=== PATIENT | male | born 1985 | race Caucasian/White ===

== ENCOUNTER 2020-11-07 13:07 | Inpatient (IN) | payer BC, OTHER ==
[~2020-11-07] VITALS: Ht 180.3 cm; Wt 91.9 kg
[~2020-11-07 13:07] MED LIST: ENOX100S4 SQ; PARO20TA98 PO; WARF5TAB2 PO
[2020-11-07] MEDS ORDERED: ONDANSETRON 2MG/ML, 2ML ONE (14:14)
[2020-11-07 14:15] LABS: MEAN CORPUSCULAR HEMOGLOBIN 28.8 pg (27.5-34.5); MEAN PLATELET VOLUME 8.2 fL (7.4-10.4); RED BLOOD COUNT 6.05 x10^6/uL (4.38-5.82); RED CELL DISTRIBUTION WIDTH 16.4 % (9.4-14.8)
[2020-11-07] MEDS ORDERED: SODIUM CHLORIDE 0.9% 1,000ML IVBOLUS ONE (14:30)
[2020-11-07] MEDS ORDERED: ONDANSETRON 2MG/ML, 2ML IVPush ONE (14:30)
[2020-11-07] MEDS ORDERED: SODIUM CHLORIDE FLUSH 10ML SYR IVF ONE (14:30)
[2020-11-07 14:45] LABS: PLATELET COUNT 1088 x10^3/uL (130-400)
[2020-11-07 14:48] LABS: BAND#(MANUAL) 3.62 x10^3/uL; BANDS%(MANUAL) 10 % (0-7); LYMPH#(MANUAL) 3.26 x10^3/uL (1-3.4); LYMPHS% (MANUAL) 9 % (22-44); METAMYELOCYTES# (MANUAL) 0.36 x10^3/uL (0-0); METAMYELOCYTES% (MANUAL) 1 % (0-1); MONOS#(MANUAL) 2.17 x10^3/uL (0.3-2.7); MONOS% (MANUAL) 6 % (2-9); SEG#(MANUAL) 26.79 x10^3/uL (1.8-6.8); SEGS% (MANUAL) 74 % (42-75)
[2020-11-07 14:49] LABS: <PLATELET ESTIMATE> INCREASED; ALANINE AMINOTRANSFERASE 36 U/L (12-78); ALBUMIN 4.2 g/dL (3.4-5.0); ALKALINE PHOSPHATASE 112 U/L (45-117); ANION GAP 17 mmol/L (5-15); ANISOCYTOSIS 1+; BILIRUBIN,TOTAL 2.4 mg/dL (0.2-1.0); CHLORIDE 96 mmol/L (98-107); CREATININE 1.54 mg/dL (0.7-1.3); LARGE PLATELETS 1+; POLYCHROMASIA 1+; TOTAL PROTEIN 9.4 g/dL (6.4-8.2)
[2020-11-07 14:55] LABS: ACETONE, SERUM Moderate(40mg/dL) (Negative)
[2020-11-07] MEDS ORDERED: CEFTRIAXONE 1,000 MG in DEXTROSE 5% 50 ML IVPB ONE (15:30)
[2020-11-07 16:56] LABS: MICROSCOPIC INDICATED
[2020-11-07] MEDS ORDERED: ACETAMINOPHEN 325 MG TABLET PO PRN (17:30)
[2020-11-07] MEDS ORDERED: MELATONIN 5 MG TABLET PO PRN (17:30)
[2020-11-07] MEDS ORDERED: ONDANSETRON 2MG/ML, 2ML IVPush PRN (17:30)
[2020-11-07] MEDS ORDERED: VANCOMYCIN PER PHARMACY MC PRN (17:30)
[2020-11-07] MEDS: SODIUM CHLORIDE 0.9% 1,000 ML IV SCH (17:30)
[2020-11-07 17:34] LABS: MEAN CORPUSCULAR HEMOGLOBIN 28.4 pg (27.5-34.5); MEAN CORPUSCULAR HGB CONC 33.4 g/dL (33.2-36.2); MEAN PLATELET VOLUME 7.8 fL (7.4-10.4); PLATELET COUNT 826 x10^3/uL (130-400); RED BLOOD COUNT 5.65 x10^6/uL (4.38-5.82); RED CELL DISTRIBUTION WIDTH 16.4 % (9.4-14.8)
[2020-11-07] MEDS ORDERED: VANCOMYCIN 2,100 MG in SODIUM CHLORIDE 0.9% 500 ML IV ONE (18:00)
[2020-11-07 18:17] LABS: ANISOCYTOSIS 1+; BAND#(MANUAL) 2.31 x10^3/uL; BANDS%(MANUAL) 8 % (0-7); LYMPH#(MANUAL) 0.87 x10^3/uL (1-3.4); LYMPHS% (MANUAL) 3 % (22-44); MONOS% (MANUAL) 9 % (2-9); SEG#(MANUAL) 23.12 x10^3/uL (1.8-6.8); SEGS% (MANUAL) 80 % (42-75)
[2020-11-07 18:18] LABS: POLYCHROMASIA 1+
[2020-11-07 18:19] LABS: <PLATELET ESTIMATE> INCREASED; LARGE PLATELETS 1+
--- NOTE | 2020-11-07 18:28 | NUR ---
PT BACK FROM CT, AWAITING RESULTS.
[2020-11-07] MEDS ORDERED: PHARMACOKINETIC CONSULTATION MC ONE (20:30)
[2020-11-07] MEDS ORDERED: PHARMACOKINETIC MONITORING MC PRN (20:30)
--- NOTE | 2020-11-07 21:02 | NUR ---
REPORT TO SHELLY APONTE
--- NOTE | 2020-11-07 21:17 | NUR ---
PT STATES HE CAME TO ER BECAUSE ON SUNDAY PT HAD STOMACH AND BACK PAIN, PT STATES HE COULDNT URINATE AND COULD ONLY URINATE FOR A FEW SECONDS, PT STATES WHEN HE URINATED IT WOULD STING
[2020-11-07] MEDS ORDERED: HYDROcodone/APAP 5/325 TABLET ONE (21:25)
[2020-11-07] MEDS: HYDROcodone/APAP 5/325 TABLET PO PRN (21:28)
[2020-11-07] MEDS ORDERED: ENALAPRILAT 1.25 MG/ML, 1ML ONE (23:47)
[2020-11-07] MEDS: ENALAPRILAT 1.25 MG/ML, 2ML IVPush PRN (23:50)
--- NOTE | 2020-11-07 23:53 | NUR ---
PTS BLOOD PRESSURE ELEVATED AT 165/105, PT HAS PRN MEDICATION IN MAY, THIS RN ADMINISTERED VASOTEC VIA IV, WILL REASSESS TO SEE IF BLOOD PRESSURE COMES DOWN, PT NAD AT THIS TIME
--- NOTE | 2020-11-08 00:01 | NUR ---
Break RN assuming care at this time.
[2020-11-08] MEDS ORDERED: MORPHINE SULFATE 4 MG/ML, 1ML ONE (00:07)
[2020-11-08] MEDS ORDERED: ONDANSETRON 2MG/ML, 2ML ONE ×2 (00:07→15:16)
[2020-11-08] MEDS: morphine SULFATE 10 MG/ML, 1ML IVPush PRN ×4 (00:11→11:29)
--- NOTE | 2020-11-08 00:15 | NUR ---
Pt given pain medication and nausea medication. Provided with ice packs and extra blankets. Denies further needs. Call torres and personal items within reach.
--- NOTE | 2020-11-08 02:11 | NUR ---
PT ASLEEP IN BED, ALL NEEDS IN REACH, CALL LIGHT IN REACH, NAD AT THIS TIME, VSS
[2020-11-08] MEDS: SODIUM CHLORIDE 0.9% 1,000 ML IV SCH ×3 (02:19→18:10)
[2020-11-08] MEDS ORDERED: morphine SULFATE 10 MG/ML, 1ML ONE ×2 (04:57→07:50)
--- NOTE | 2020-11-08 05:16 | NUR ---
PT LAYING IN BED, PT A/OX3, PT MEDICATED FOR PAIN PER MAR, ALL NEEDS IN REACH, CALL LIGHT IN REACH, NAD AT THIS TIME, VSS
[2020-11-08] MEDS: VANCOMYCIN 1,700 MG in SODIUM CHLORIDE 0.9% 250 ML IV SCH ×2 (05:58→18:09)
[2020-11-08 06:19] LABS: CHLORIDE 99 mmol/L (98-107)
[2020-11-08 06:25] LABS: ALANINE AMINOTRANSFERASE 48 U/L (12-78); ALBUMIN 3.1 g/dL (3.4-5.0); ALKALINE PHOSPHATASE 106 U/L (45-117); ANION GAP 10 mmol/L (5-15); CALCIUM 8.2 mg/dL (8.5-10.1); CREATININE 0.92 mg/dL (0.7-1.3); TOTAL PROTEIN 7.7 g/dL (6.4-8.2)
--- NOTE | 2020-11-08 06:55 | NUR ---
REPORT FROM FADI BRAVO
[2020-11-08 07:40] LABS: MEAN CORPUSCULAR HEMOGLOBIN 28.2 pg (27.5-34.5); MEAN CORPUSCULAR HGB CONC 33.1 g/dL (33.2-36.2); MEAN PLATELET VOLUME 8.1 fL (7.4-10.4); PLATELET COUNT 826 x10^3/uL (130-400); RED BLOOD COUNT 5.27 x10^6/uL (4.38-5.82); RED CELL DISTRIBUTION WIDTH 16.2 % (9.4-14.8)
[2020-11-08 08:08] LABS: BAND#(MANUAL) 1.93 x10^3/uL; BANDS%(MANUAL) 10 % (0-7); LYMPH#(MANUAL) 1.16 x10^3/uL (1-3.4); LYMPHS% (MANUAL) 6 % (22-44); MONOS% (MANUAL) 15 % (2-9); SEG#(MANUAL) 13.32 x10^3/uL (1.8-6.8); SEGS% (MANUAL) 69 % (42-75)
[2020-11-08 08:12] LABS: <PLATELET ESTIMATE> INCREASED; PMNS WITH VACUOLES 1+; POLYCHROMASIA 1+
[2020-11-08 08:13] LABS: GIANT PLATELETS 1+; TOXIC GRAN 1+
--- NOTE | 2020-11-08 08:22 | NUR ---
PT TOLERATED NG INSERTION WELL. NADN/VSS
--- NOTE | 2020-11-08 09:19 | NUR ---
Patient is resting comfortably in bed. Bed in lowest, rails engaged, call light on lap. Vital Signs within normal limits. WCTM. Dad at bs.
--- NOTE | 2020-11-08 10:00 | NUR ---
PT SITTING ON GURNEY, FATHER AT BS. CALL LIGHT WITHIN REACH. BED IN LOWEST POSITION, BED RAILS UP X2. PT EDUCATED ON PAIN MED SCHEDULE.
[2020-11-08 10:04] LABS: ABSOLUTE RETICS # 0.071 x10^6/uL (0.5-1.5); RED BLOOD COUNT 5.36 x10^6/uL (4.38-5.82); RETICULOCYTE COUNT % 1.32 % (0.5-1.5)
[2020-11-08] MEDS ORDERED: HEPARIN 5,000 UNITS/ML, 1ML ONE (10:16)
[2020-11-08] MEDS ORDERED: HEPARIN 25,000 UNITS/250ML PMX 250 ML ONE (10:16)
[2020-11-08] MEDS ORDERED: HEPARIN 25,000 UNITS/250ML PMX 250 ML IV PRN (10:30)
[2020-11-08] MEDS ORDERED: HEPARIN 5,000 UNITS/ML, 1ML IV ONE (10:30)
[2020-11-08] MEDS ORDERED: HEPARIN 5,000 UNITS/ML, 1ML IV PRN (10:30)
--- NOTE | 2020-11-08 10:45 | NUR ---
PT STATED HIS NG TUBE "FELL OUT", NEW NG TUBE INSERTED. PT TOLERATED PROCEDURE WELL. PT EDUCATED ON THE IMPORTANCE OF KEEPING NG TUBE IN PLACE. NADN/VSS
--- NOTE | 2020-11-08 11:01 | NUR ---
Pt to be admitted to [facility], room 528. Report called to LYNNETTE.
[2020-11-08 11:33] VITALS: BP 147/94
[2020-11-08 12:10] LABS: INTERNATIONAL NORMALIZED RATIO 1.28 (0.93-1.1); PROTHROMBIN TIME 13.5 Seconds (9.6-11.5)
[2020-11-08] MEDS ORDERED: KETAMINE 10 MG/ML, 20ML ONE (13:15)
[2020-11-08] MEDS ORDERED: CEFOTETAN 2 GM ONE (13:15)
[2020-11-08] MEDS ORDERED: LORazepam 2 MG/ML, 1ML IVPush PRN (13:30)
[2020-11-08] MEDS ORDERED: LABETALOL 5MG/ML, 20ML IV PRN (13:30)
[2020-11-08] MEDS ORDERED: PROMETHAZINE 25 MG/ML, 1ML IVPush PRN (13:30)
[2020-11-08] MEDS ORDERED: HALOPERIDOL 5 MG/ML IV PRN (13:30)
[2020-11-08] MEDS ORDERED: ONDANSETRON 2MG/ML, 2ML IVPush PRN (13:30)
[2020-11-08] MEDS ORDERED: EPHEDRINE 50 MG/ML, 1ML IVPush PRN (13:30)
[2020-11-08] MEDS ORDERED: METHOCARBAMOL 1,000 MG in DEXTROSE 5% 100 ML IV PRN (13:30)
[2020-11-08] MEDS ORDERED: MEPERIDINE/PF 25MG/0.5ML IVPush PRN (13:30)
[2020-11-08] MEDS ORDERED: hydrALAzine 20 MG/ML, 1ML IV PRN (13:30)
[2020-11-08] MEDS ORDERED: OXYcodone 5 MG/5 ML ORAL.SOL UDC PO PRN (13:30)
[2020-11-08] MEDS ORDERED: ACETAMINOPHEN 325 MG TABLET PO PRN (13:30)
[2020-11-08] MEDS ORDERED: FENTANYL PF 250 MCG/5ML ONE (14:29)
[2020-11-08] MEDS ORDERED: SUGAMMADEX 200 MG/2 ML IVPush ONE (14:51)
[2020-11-08] MEDS: CEFTRIAXONE 2,000 MG in DEXTROSE 5% 50 ML IVPB SCH (15:00)
[2020-11-08] MEDS ORDERED: SUCCINYLCHOLINE 20 MG/ML, 10ML ONE (15:16)
[2020-11-08] MEDS ORDERED: GLYCOPYRROLATE 0.2MG/1ML, 5ML ONE (15:16)
[2020-11-08] MEDS ORDERED: NEOSTIGMINE 1 MG/ML, 10ML ONE (15:16)
[2020-11-08] MEDS ORDERED: ROCURONIUM 10MG/ML,5ML ONE (15:16)
[2020-11-08] MEDS ORDERED: PROPOFOL 10 MG/ML, 20ML ONE (15:16)
[2020-11-08] MEDS ORDERED: CEFAZOLIN 1,000 MG ONE (15:16)
[2020-11-08] MEDS ORDERED: DEXAMETHASONE 4 MG/ML, 1ML ONE (15:16)
[2020-11-08] MEDS ORDERED: FENTANYL PF 100 MCG/2ML ONE ×3 (15:17→16:05)
[2020-11-08] MEDS ORDERED: HYDROmorphone 2 MG/ML, 1ML ONE ×3 (15:39→21:29)
[2020-11-08] MEDS: FENTANYL PF 100 MCG/2ML IV PRN ×4 (15:40→16:20)
[2020-11-08] MEDS: HYDROmorphone 1 MG/ML, 1ML INJ IVPush PRN ×8 (15:45→16:40)
[2020-11-08] MEDS: METRONIDAZOLE PMX 500MG/100ML 100 ML IV SCH ×2 (18:09→23:18)
[2020-11-08] MEDS: GABAPENTIN 300 MG CAPSULE PO SCH ×2 (18:09→21:39)
[2020-11-08] MEDS: HEPARIN 5,000 UNITS/ML, 1ML IV PRN (18:25)
[2020-11-08] MEDS: HEPARIN 25,000 UNITS/250ML PMX 250 ML IV PRN (18:26)
[2020-11-08 18:33] VITALS: BP 138/93
[2020-11-08 19:03] VITALS: BP 133/88
[2020-11-08] MEDS: ACETAMINOPHEN 500 MG TABLET PO SCH (21:36)
[2020-11-08] MEDS: HYDROmorphone 1 MG/ML, 1ML INJ IV PRN (21:40)
[2020-11-08] MEDS: HYDROcodone/APAP 5/325 TABLET PO PRN (23:10)
[2020-11-09 00:38] VITALS: BP 139/95
[2020-11-09] MEDS ORDERED: HYDROmorphone 2 MG/ML, 1ML ONE ×4 (00:43→21:32)
[2020-11-09] MEDS: HYDROmorphone 1 MG/ML, 1ML INJ IV PRN ×4 (00:48→21:38)
[2020-11-09] MEDS: HEPARIN 5,000 UNITS/ML, 1ML IV PRN ×4 (01:09→19:46)
[2020-11-09] MEDS: ACETAMINOPHEN 500 MG TABLET PO SCH ×4 (03:04→21:37)
[2020-11-09] MEDS: HYDROcodone/APAP 5/325 TABLET PO PRN (03:14)
[2020-11-09] MEDS: METRONIDAZOLE PMX 500MG/100ML 100 ML IV SCH ×4 (06:01→22:52)
[2020-11-09] MEDS: VANCOMYCIN 1,700 MG in SODIUM CHLORIDE 0.9% 250 ML IV SCH ×2 (06:03→18:03)
[2020-11-09 06:39] VITALS: BP 148/98
[2020-11-09] MEDS: GABAPENTIN 300 MG CAPSULE PO SCH ×3 (08:11→21:37)
[2020-11-09 08:14] LABS: MEAN CORPUSCULAR HEMOGLOBIN 28.4 pg (27.5-34.5); MEAN CORPUSCULAR HGB CONC 33.2 g/dL (33.2-36.2); MEAN PLATELET VOLUME 7.8 fL (7.4-10.4); RED BLOOD COUNT 5.31 x10^6/uL (4.38-5.82); RED CELL DISTRIBUTION WIDTH 16.5 % (9.4-14.8)
[2020-11-09 08:22] LABS: PLATELET COUNT 1068 x10^3/uL (130-400)
[2020-11-09 08:27] LABS: ALANINE AMINOTRANSFERASE 39 U/L (12-78); ALBUMIN 2.7 g/dL (3.4-5.0); ANION GAP 10 mmol/L (5-15); CALCIUM 8.3 mg/dL (8.5-10.1); CHLORIDE 104 mmol/L (98-107); CREATININE 0.78 mg/dL (0.7-1.3)
[2020-11-09 08:29] LABS: ALKALINE PHOSPHATASE 96 U/L (45-117); BILIRUBIN,TOTAL 1.5 mg/dL (0.2-1.0); TOTAL PROTEIN 6.7 g/dL (6.4-8.2)
[2020-11-09 09:02] LABS: BAND#(MANUAL) 1.95 x10^3/uL; BANDS%(MANUAL) 9 % (0-7); LYMPH#(MANUAL) 2.17 x10^3/uL (1-3.4); LYMPHS% (MANUAL) 10 % (22-44); MONOS#(MANUAL) 1.95 x10^3/uL (0.3-2.7); MONOS% (MANUAL) 9 % (2-9); POLYCHROMASIA 1+; SEG#(MANUAL) 15.62 x10^3/uL (1.8-6.8); SEGS% (MANUAL) 72 % (42-75)
[2020-11-09 09:03] LABS: <PLATELET ESTIMATE> INCREASED; ANISOCYTOSIS 1+; LARGE PLATELETS 1+
[2020-11-09] MEDS: SODIUM CHLORIDE 0.9% 1,000 ML IV SCH (10:39)
[2020-11-09 14:20] VITALS: BP 162/104
[2020-11-09] MEDS: CEFTRIAXONE 2,000 MG in DEXTROSE 5% 50 ML IVPB SCH (15:08)
[2020-11-09] MEDS: HEPARIN 25,000 UNITS/250ML PMX 250 ML IV PRN (16:08)
[2020-11-09 18:50] VITALS: BP 164/104
[2020-11-10] MEDS ORDERED: HYDROmorphone 2 MG/ML, 1ML ONE ×5 (01:11→17:50)
[2020-11-10] MEDS: SODIUM CHLORIDE 0.9% 1,000 ML IV SCH ×2 (01:15→11:30)
[2020-11-10] MEDS: HYDROmorphone 1 MG/ML, 1ML INJ IV PRN ×6 (01:15→20:58)
[2020-11-10 02:01] VITALS: BP 153/106
[2020-11-10 02:25] LABS: MEAN CORPUSCULAR HEMOGLOBIN 28.7 pg (27.5-34.5); MEAN CORPUSCULAR HGB CONC 33.5 g/dL (33.2-36.2); MEAN PLATELET VOLUME 7.5 fL (7.4-10.4); PLATELET COUNT 727 x10^3/uL (130-400); RED BLOOD COUNT 4.69 x10^6/uL (4.38-5.82)
[2020-11-10 02:48] LABS: ANISOCYTOSIS 1+; BAND#(MANUAL) 1.13 x10^3/uL; BANDS%(MANUAL) 6 % (0-7); EOS#(MANUAL) 0.19 x10^3/uL (0.0-0.4); EOS% (MANUAL) 1 % (1-7); LYMPH#(MANUAL) 2.08 x10^3/uL (1-3.4); LYMPHS% (MANUAL) 11 % (22-44); MONOS#(MANUAL) 1.51 x10^3/uL (0.3-2.7); MONOS% (MANUAL) 8 % (2-9); POLYCHROMASIA 1+; SEG#(MANUAL) 13.99 x10^3/uL (1.8-6.8); SEGS% (MANUAL) 74 % (42-75)
[2020-11-10 02:49] LABS: <PLATELET ESTIMATE> INCREASED; LARGE PLATELETS 1+
[2020-11-10] MEDS ORDERED: ENALAPRILAT 1.25 MG/ML, 1ML ONE (02:49)
[2020-11-10] MEDS: ENALAPRILAT 1.25 MG/ML, 2ML IVPush PRN (02:54)
[2020-11-10] MEDS: HEPARIN 5,000 UNITS/ML, 1ML IV PRN ×3 (02:55→19:19)
[2020-11-10 05:00] VITALS: BP 152/94
[2020-11-10] MEDS: METRONIDAZOLE PMX 500MG/100ML 100 ML IV SCH ×4 (05:23→23:50)
[2020-11-10 06:22] LABS: ALANINE AMINOTRANSFERASE 32 U/L (12-78); ALBUMIN 2.6 g/dL (3.4-5.0); ALKALINE PHOSPHATASE 90 U/L (45-117); ANION GAP 9 mmol/L (5-15); BILIRUBIN,TOTAL 0.6 mg/dL (0.2-1.0); CALCIUM 7.9 mg/dL (8.5-10.1); CHLORIDE 100 mmol/L (98-107); CREATININE 0.69 mg/dL (0.7-1.3); VANCOMYCIN,TROUGH 14.8 mcg/mL (5.0-10.0)
[2020-11-10] MEDS: ACETAMINOPHEN 500 MG TABLET PO SCH ×3 (06:22→22:30)
[2020-11-10] MEDS: VANCOMYCIN 1,700 MG in SODIUM CHLORIDE 0.9% 250 ML IV SCH (06:22)
[2020-11-10] MEDS: HEPARIN 25,000 UNITS/250ML PMX 250 ML IV PRN ×2 (08:10→23:50)
[2020-11-10] MEDS: GABAPENTIN 300 MG CAPSULE PO SCH ×3 (08:13→20:58)
[2020-11-10 09:18] VITALS: BP 127/78
[2020-11-10] MEDS ORDERED: VANCOMYCIN 1,800 MG in SODIUM CHLORIDE 0.9% 250 ML IV ONE (12:00)
[2020-11-10 15:08] VITALS: BP 149/90
[2020-11-10] MEDS: CEFTRIAXONE 2,000 MG in DEXTROSE 5% 50 ML IVPB SCH (16:12)
[2020-11-10 20:31] VITALS: BP 153/89
[2020-11-10] MEDS: HYDROcodone/APAP 5/325 TABLET PO PRN (22:51)
[2020-11-11] MEDS: VANCOMYCIN 1,800 MG in SODIUM CHLORIDE 0.9% 250 ML IV SCH ×2 (01:22→13:52)
[2020-11-11 01:40] VITALS: BP 153/72
[2020-11-11 02:05] LABS: MEAN CORPUSCULAR HEMOGLOBIN 28.1 pg (27.5-34.5); MEAN CORPUSCULAR HGB CONC 33.1 g/dL (33.2-36.2); MEAN PLATELET VOLUME 7.3 fL (7.4-10.4); PLATELET COUNT 693 x10^3/uL (130-400); RED BLOOD COUNT 4.83 x10^6/uL (4.38-5.82); RED CELL DISTRIBUTION WIDTH 15.7 % (9.4-14.8)
[2020-11-11 02:13] LABS: ALANINE AMINOTRANSFERASE 28 U/L (12-78); ALBUMIN 2.6 g/dL (3.4-5.0); ANION GAP 10 mmol/L (5-15); CALCIUM 8.5 mg/dL (8.5-10.1); CHLORIDE 100 mmol/L (98-107); CREATININE 0.65 mg/dL (0.7-1.3)
[2020-11-11 02:15] LABS: ALKALINE PHOSPHATASE 86 U/L (45-117); BILIRUBIN,TOTAL 0.6 mg/dL (0.2-1.0); TOTAL PROTEIN 6.6 g/dL (6.4-8.2)
[2020-11-11 03:13] LABS: ANISOCYTOSIS 1+; BAND#(MANUAL) 0.73 x10^3/uL; BANDS%(MANUAL) 4 % (0-7); BASOS#(MANUAL) 0.18 x10^3/uL (0-0.1); BASOS% (MANUAL) 1 % (0-1); EOS#(MANUAL) 0.73 x10^3/uL (0.0-0.4); EOS% (MANUAL) 4 % (1-7); LYMPHS% (MANUAL) 11 % (22-44); MONOS#(MANUAL) 0.91 x10^3/uL (0.3-2.7); MONOS% (MANUAL) 5 % (2-9); POLYCHROMASIA 1+; SEG#(MANUAL) 13.65 x10^3/uL (1.8-6.8); SEGS% (MANUAL) 75 % (42-75)
[2020-11-11 03:14] LABS: <PLATELET ESTIMATE> INCREASED; LARGE PLATELETS 1+
[2020-11-11] MEDS: METRONIDAZOLE PMX 500MG/100ML 100 ML IV SCH ×3 (05:00→18:09)
[2020-11-11] MEDS: HYDROcodone/APAP 5/325 TABLET PO PRN ×4 (05:01→21:16)
[2020-11-11] MEDS: SODIUM CHLORIDE 0.9% 1,000 ML IV SCH ×3 (05:01→21:00)
[2020-11-11] MEDS: ACETAMINOPHEN 500 MG TABLET PO SCH ×3 (06:11→21:17)
[2020-11-11 07:08] VITALS: BP 147/90
[2020-11-11] MEDS: GABAPENTIN 300 MG CAPSULE PO SCH ×3 (08:45→21:16)
[2020-11-11] MEDS: HEPARIN 5,000 UNITS/ML, 1ML IV PRN (10:36)
[2020-11-11] MEDS ORDERED: HYDROmorphone 2 MG/ML, 1ML ONE (11:22)
[2020-11-11] MEDS: HYDROmorphone 1 MG/ML, 1ML INJ IV PRN (11:26)
[2020-11-11] MEDS: HEPARIN 25,000 UNITS/250ML PMX 250 ML IV PRN (14:26)
[2020-11-11 14:40] VITALS: BP 158/91
[2020-11-11] MEDS: CEFTRIAXONE 2,000 MG in DEXTROSE 5% 50 ML IVPB SCH (16:13)
[2020-11-11 21:25] VITALS: BP 154/81
[2020-11-12 00:59] VITALS: BP 142/93
[2020-11-12] MEDS: VANCOMYCIN 1,800 MG in SODIUM CHLORIDE 0.9% 250 ML IV SCH ×2 (01:16→13:07)
[2020-11-12] MEDS: HYDROcodone/APAP 5/325 TABLET PO PRN ×5 (01:16→20:13)
[2020-11-12] MEDS: METRONIDAZOLE PMX 500MG/100ML 100 ML IV SCH ×5 (01:16→23:51)
[2020-11-12] MEDS ORDERED: HYDROmorphone 2 MG/ML, 1ML ONE (03:38)
[2020-11-12] MEDS: HEPARIN 25,000 UNITS/250ML PMX 250 ML IV PRN ×2 (03:45→16:40)
[2020-11-12] MEDS: HYDROmorphone 1 MG/ML, 1ML INJ IV PRN (03:46)
[2020-11-12] MEDS: SODIUM CHLORIDE 0.9% 1,000 ML IV SCH ×3 (05:00→19:00)
[2020-11-12] MEDS: ACETAMINOPHEN 500 MG TABLET PO SCH ×3 (06:04→20:13)
[2020-11-12 07:19] VITALS: BP 146/93
[2020-11-12] MEDS: GABAPENTIN 300 MG CAPSULE PO SCH ×3 (08:03→20:15)
[2020-11-12 09:00] LABS: ANION GAP 14 mmol/L (5-15); CALCIUM 8.4 mg/dL (8.5-10.1); CHLORIDE 98 mmol/L (98-107); CREATININE 0.71 mg/dL (0.7-1.3)
[2020-11-12 09:00] LABS: BASOPHILS % (AUTO) 0 % (0-1); EOSINOPHILS % (AUTO) 3 % (1-7); LYMPHOCYTES % (AUTO) 12 % (22-44); MEAN CORPUSCULAR HEMOGLOBIN 28.2 pg (27.5-34.5); MEAN CORPUSCULAR HGB CONC 33.2 g/dL (33.2-36.2); MEAN PLATELET VOLUME 7.7 fL (7.4-10.4); MONOCYTES % (AUTO) 7 % (2-9); NEUTROPHILS % (AUTO) 77 % (42-75); PLATELET COUNT 606 x10^3/uL (130-400); RED BLOOD COUNT 4.77 x10^6/uL (4.38-5.82); RED CELL DISTRIBUTION WIDTH 15.8 % (9.4-14.8)
[2020-11-12] MEDS: PANTOPRAZOLE 40 MG IV IVPush SCH ×2 (10:09→20:14)
[2020-11-12] MEDS: POTASSIUM CHLORIDE 40 MEQ in SODIUM CHLORIDE 0.9% 500 ML IV SCH ×2 (11:28→21:14)
[2020-11-12] MEDS: D5%-0.45NACL+KCL 20MEQ 1,000 ML IV SCH ×2 (11:28→18:39)
[2020-11-12 13:49] VITALS: BP 143/84
[2020-11-12 16:07] LABS: CLOSTRIDIUM DIFFICILE ANTIGEN NEGATIVE; CLOSTRIDIUM DIFFICILE TOXIN NEGATIVE (Negative)
[2020-11-12] MEDS: CEFTRIAXONE 2,000 MG in DEXTROSE 5% 50 ML IVPB SCH (16:36)
[2020-11-12 18:56] VITALS: BP 143/90
[2020-11-13 00:11] VITALS: BP 126/79
[2020-11-13 01:07] LABS: MEAN CORPUSCULAR HEMOGLOBIN 27.9 pg (27.5-34.5); MEAN PLATELET VOLUME 7.3 fL (7.4-10.4); PLATELET COUNT 574 x10^3/uL (130-400); RED BLOOD COUNT 4.17 x10^6/uL (4.38-5.82); RED CELL DISTRIBUTION WIDTH 15.8 % (9.4-14.8)
[2020-11-13 01:16] LABS: ANION GAP 5 mmol/L (5-15); CALCIUM 7.9 mg/dL (8.5-10.1); CHLORIDE 104 mmol/L (98-107); CREATININE 0.68 mg/dL (0.7-1.3)
[2020-11-13 01:17] LABS: VANCOMYCIN,TROUGH 16.9 mcg/mL (5.0-10.0)
[2020-11-13] MEDS: VANCOMYCIN 1,800 MG in SODIUM CHLORIDE 0.9% 250 ML IV SCH ×3 (02:02→22:39)
[2020-11-13] MEDS: D5%-0.45NACL+KCL 20MEQ 1,000 ML IV SCH (02:04)
[2020-11-13 02:09] LABS: INTERNATIONAL NORMALIZED RATIO 2.05 (0.93-1.1); PROTHROMBIN TIME 21.2 Seconds (9.6-11.5)
[2020-11-13] MEDS: HYDROcodone/APAP 5/325 TABLET PO PRN ×4 (02:14→22:39)
[2020-11-13 02:35] LABS: <PLATELET ESTIMATE> INCREASED; ANISOCYTOSIS 1+; BAND#(MANUAL) 0.31 x10^3/uL; BANDS%(MANUAL) 2 % (0-7); EOS#(MANUAL) 0.94 x10^3/uL (0.0-0.4); EOS% (MANUAL) 6 % (1-7); LYMPH#(MANUAL) 2.67 x10^3/uL (1-3.4); LYMPHS% (MANUAL) 17 % (22-44); METAMYELOCYTES# (MANUAL) 0.63 x10^3/uL (0-0); METAMYELOCYTES% (MANUAL) 4 % (0-1); MONOS#(MANUAL) 0.94 x10^3/uL (0.3-2.7); MONOS% (MANUAL) 6 % (2-9); MYELOCYTES# (MANUAL) 0.16 x10^3/uL (0-0); MYELOCYTES% (MANUAL) 1 % (0-0); POLYCHROMASIA 1+; REACTIVE LYMPHS # (MANUAL) 0.16 x10^3/uL (0-0); REACTIVE LYMPHS % (MANUAL) 1 % (0-0); SEG#(MANUAL) 9.89 x10^3/uL (1.8-6.8); SEGS% (MANUAL) 63 % (42-75)
[2020-11-13 02:36] LABS: LARGE PLATELETS 1+
[2020-11-13] MEDS: SODIUM CHLORIDE 0.9% 1,000 ML IV SCH (03:00)
[2020-11-13] MEDS: ACETAMINOPHEN 500 MG TABLET PO SCH ×3 (06:00→22:39)
[2020-11-13] MEDS: METRONIDAZOLE PMX 500MG/100ML 100 ML IV SCH ×4 (06:26→22:39)
[2020-11-13 06:59] VITALS: BP 133/87
[2020-11-13] MEDS ORDERED: PANTOPRAZOLE 80 MG in SODIUM CHLORIDE 0.9% 50 ML IV ONE (09:00)
[2020-11-13] MEDS: GABAPENTIN 300 MG CAPSULE PO SCH ×3 (09:37→22:40)
[2020-11-13] MEDS: POTASSIUM CHLORIDE 40 MEQ in SODIUM CHLORIDE 0.9% 500 ML IV SCH (10:17)
[2020-11-13] MEDS: PANTOPRAZOLE 80 MG in SODIUM CHLORIDE 0.9% 100 ML IV SCH (10:17)
[2020-11-13] MEDS ORDERED: hydrALAzine 20 MG/ML, 1ML IV PRN (13:00)
[2020-11-13] MEDS ORDERED: FENTANYL PF 100 MCG/2ML IV PRN (13:00)
[2020-11-13] MEDS ORDERED: PROMETHAZINE 25 MG/ML, 1ML IVPush PRN (13:00)
[2020-11-13] MEDS ORDERED: HYDROmorphone 1 MG/ML, 1ML INJ IVPush PRN (13:00)
[2020-11-13] MEDS ORDERED: HALOPERIDOL 5 MG/ML IV PRN (13:00)
[2020-11-13] MEDS ORDERED: LABETALOL 5MG/ML, 20ML IV PRN (13:00)
[2020-11-13] MEDS ORDERED: PROPOFOL 10 MG/ML, 20ML ONE (13:06)
[2020-11-13] MEDS ORDERED: SUCCINYLCHOLINE 20 MG/ML, 10ML ONE (13:06)
[2020-11-13] MEDS ORDERED: FENTANYL PF 100 MCG/2ML ONE (13:20)
[2020-11-13] MEDS ORDERED: D5%-0.45NACL+KCL 20MEQ 1,000 ML IV SCH (14:00)
[2020-11-13] MEDS ORDERED: TPN PER PHARMACY MC PRN (17:00)
[2020-11-13] MEDS ORDERED: [UNRECOGNIZED DRUG - OTHER] IV SCH (17:00)
[2020-11-13] MEDS ORDERED: [UNRECOGNIZED DRUG - OTHER] IV SCH (17:00)
[2020-11-13] MEDS ORDERED: FAT EMUL IV SCH ×2 (17:00)
[2020-11-13] MEDS ORDERED: SMOF TPN IV SCH ×2 (17:00)
[2020-11-13] MEDS ORDERED: AMINO ACID 10% IV SCH ×2 (17:00)
[2020-11-13] MEDS ORDERED: DEXTROSE 70% IV SCH ×2 (17:00)
[2020-11-13] MEDS: CEFTRIAXONE 2,000 MG in DEXTROSE 5% 50 ML IVPB SCH (17:12)
[2020-11-13] MEDS: FILTER, DISP 1.2 MICRON FOR TPN/PVN IV PRN (17:54)
[2020-11-13 18:45] VITALS: BP 124/84
[2020-11-13 20:20] VITALS: BP 133/84
[2020-11-14] MEDS: PANTOPRAZOLE 80 MG in SODIUM CHLORIDE 0.9% 100 ML IV SCH ×3 (00:10→19:07)
[2020-11-14 00:20] VITALS: BP 121/73
[2020-11-14] MEDS: METRONIDAZOLE PMX 500MG/100ML 100 ML IV SCH ×3 (04:54→18:33)
[2020-11-14] MEDS: HYDROcodone/APAP 5/325 TABLET PO PRN ×4 (04:54→22:57)
[2020-11-14] MEDS: VANCOMYCIN 1,800 MG in SODIUM CHLORIDE 0.9% 250 ML IV SCH (06:33)
[2020-11-14] MEDS: ACETAMINOPHEN 500 MG TABLET PO SCH ×3 (06:33→22:58)
[2020-11-14 07:30] VITALS: BP 129/87
[2020-11-14] MEDS: GABAPENTIN 300 MG CAPSULE PO SCH ×3 (09:50→22:54)
[2020-11-14] MEDS: D5%-0.45% NACL 1,000 ML IV SCH (09:51)
[2020-11-14 11:11] LABS: ANION GAP 5 mmol/L (5-15); CALCIUM 8.3 mg/dL (8.5-10.1); CHLORIDE 111 mmol/L (98-107); CREATININE 0.55 mg/dL (0.7-1.3)
[2020-11-14 11:29] LABS: BASOPHILS % (AUTO) 1 % (0-1); EOSINOPHILS % (AUTO) 3 % (1-7); LYMPHOCYTES % (AUTO) 12 % (22-44); MEAN CORPUSCULAR HEMOGLOBIN 27.9 pg (27.5-34.5); MEAN CORPUSCULAR HGB CONC 32.7 g/dL (33.2-36.2); MONOCYTES % (AUTO) 7 % (2-9); NEUTROPHILS % (AUTO) 79 % (42-75); PLATELET COUNT 548 x10^3/uL (130-400); RED CELL DISTRIBUTION WIDTH 15.8 % (9.4-14.8)
[2020-11-14 12:20] LABS: PREALBUMIN 17.6 mg/dL (20.0-40.0)
[2020-11-14 13:35] VITALS: BP 131/85
[2020-11-14] MEDS ORDERED: FAT EMUL IV SCH (17:00)
[2020-11-14] MEDS ORDERED: SMOF TPN IV SCH (17:00)
[2020-11-14] MEDS ORDERED: [UNRECOGNIZED DRUG - OTHER] IV SCH (17:00)
[2020-11-14] MEDS ORDERED: DEXTROSE 70% IV SCH (17:00)
[2020-11-14] MEDS ORDERED: AMINO ACID 10% IV SCH (17:00)
[2020-11-14] MEDS: CEFTRIAXONE 2,000 MG in DEXTROSE 5% 50 ML IVPB SCH (17:14)
[2020-11-14] MEDS: FILTER, DISP 1.2 MICRON FOR TPN/PVN IV PRN (17:15)
[2020-11-14 18:27] VITALS: BP 131/81
[2020-11-15 00:17] VITALS: BP 125/76
[2020-11-15] MEDS: HYDROcodone/APAP 5/325 TABLET PO PRN ×4 (03:56→16:19)
[2020-11-15] MEDS: D5%-0.45% NACL 1,000 ML IV SCH (04:55)
[2020-11-15] MEDS: ACETAMINOPHEN 500 MG TABLET PO SCH ×3 (05:11→21:31)
[2020-11-15 05:53] LABS: ALANINE AMINOTRANSFERASE 41 U/L (12-78); ALBUMIN 2.3 g/dL (3.4-5.0); ANION GAP 3 mmol/L (5-15); CALCIUM 8.3 mg/dL (8.5-10.1); CHLORIDE 106 mmol/L (98-107); CREATININE 0.54 mg/dL (0.7-1.3)
[2020-11-15 05:56] LABS: ALKALINE PHOSPHATASE 95 U/L (45-117); BILIRUBIN,TOTAL 0.4 mg/dL (0.2-1.0); TOTAL PROTEIN 5.9 g/dL (6.4-8.2); VANCOMYCIN,RANDOM 9.6 mcg/mL
[2020-11-15] MEDS: PANTOPRAZOLE 80 MG in SODIUM CHLORIDE 0.9% 100 ML IV SCH ×2 (06:22→16:18)
[2020-11-15] MEDS: METRONIDAZOLE PMX 500MG/100ML 100 ML IV SCH ×4 (06:22→17:35)
[2020-11-15 07:00] VITALS: BP 131/84
[2020-11-15] MEDS: GABAPENTIN 300 MG CAPSULE PO SCH ×3 (08:05→21:00)
[2020-11-15] MEDS: DIPHENOXYLATE/ATROPINE ORAL SOL PO SCH ×3 (09:48→21:00)
[2020-11-15] MEDS: VANCOMYCIN 1,800 MG in SODIUM CHLORIDE 0.9% 250 ML IV SCH (13:01)
[2020-11-15 14:06] VITALS: BP 125/80
[2020-11-15] MEDS: CEFTRIAXONE 2,000 MG in DEXTROSE 5% 50 ML IVPB SCH (16:19)
[2020-11-15] MEDS ORDERED: SMOF TPN IV SCH (17:00)
[2020-11-15] MEDS ORDERED: DEXTROSE 70% IV SCH (17:00)
[2020-11-15] MEDS ORDERED: AMINO ACID 10% IV SCH (17:00)
[2020-11-15] MEDS ORDERED: [UNRECOGNIZED DRUG - OTHER] IV SCH (17:00)
[2020-11-15] MEDS ORDERED: FAT EMUL IV SCH (17:00)
[2020-11-15] MEDS: FILTER, DISP 1.2 MICRON FOR TPN/PVN IV PRN (17:36)
[2020-11-15 19:33] VITALS: BP 118/73
[2020-11-16] MEDS: METRONIDAZOLE PMX 500MG/100ML 100 ML IV SCH ×4 (00:28→17:33)
[2020-11-16] MEDS: HYDROcodone/APAP 5/325 TABLET PO PRN ×5 (00:30→20:19)
[2020-11-16] MEDS: GABAPENTIN 300 MG CAPSULE PO SCH ×4 (00:32→20:19)
[2020-11-16] MEDS: DIPHENOXYLATE/ATROPINE ORAL SOL PO SCH ×5 (00:33→22:55)
[2020-11-16 01:23] VITALS: BP 116/75
[2020-11-16] MEDS: VANCOMYCIN 1,800 MG in SODIUM CHLORIDE 0.9% 250 ML IV SCH ×2 (01:39→12:42)
[2020-11-16] MEDS: PANTOPRAZOLE 80 MG in SODIUM CHLORIDE 0.9% 100 ML IV SCH ×3 (01:41→22:54)
[2020-11-16] MEDS: D5%-0.45% NACL 1,000 ML IV SCH (01:41)
[2020-11-16] MEDS: ACETAMINOPHEN 500 MG TABLET PO SCH ×3 (06:31→20:19)
[2020-11-16 07:17] VITALS: BP 126/83
[2020-11-16 07:43] LABS: CHLORIDE 103 mmol/L (98-107)
[2020-11-16 07:48] LABS: ANION GAP 5 mmol/L (5-15); CALCIUM 8.8 mg/dL (8.5-10.1); CREATININE 0.59 mg/dL (0.7-1.3)
[2020-11-16] MEDS: CEFTRIAXONE 2,000 MG in DEXTROSE 5% 50 ML IVPB SCH (15:40)
[2020-11-16 15:44] VITALS: BP 130/84
[2020-11-16] MEDS ORDERED: AMINO ACID 10% IV SCH (17:00)
[2020-11-16] MEDS ORDERED: DEXTROSE 70% IV SCH (17:00)
[2020-11-16] MEDS ORDERED: SMOF TPN IV SCH (17:00)
[2020-11-16] MEDS ORDERED: FAT EMUL IV SCH (17:00)
[2020-11-16] MEDS ORDERED: [UNRECOGNIZED DRUG - OTHER] IV SCH (17:00)
[2020-11-16] MEDS: FILTER, DISP 1.2 MICRON FOR TPN/PVN IV PRN (17:33)
[2020-11-16 19:46] VITALS: BP 134/91
[2020-11-17] MEDS: D5%-0.45% NACL 1,000 ML IV SCH (00:29)
[2020-11-17] MEDS: METRONIDAZOLE PMX 500MG/100ML 100 ML IV SCH ×4 (00:29→17:38)
[2020-11-17] MEDS: VANCOMYCIN 1,800 MG in SODIUM CHLORIDE 0.9% 250 ML IV SCH ×2 (01:30→14:00)
[2020-11-17 01:35] VITALS: BP 96/64
[2020-11-17] MEDS: HYDROcodone/APAP 5/325 TABLET PO PRN ×5 (02:53→20:04)
[2020-11-17] MEDS: ACETAMINOPHEN 500 MG TABLET PO SCH ×3 (04:06→22:00)
[2020-11-17 05:18] LABS: BASOPHILS % (AUTO) 1 % (0-1); EOSINOPHILS % (AUTO) 2 % (1-7); LYMPHOCYTES % (AUTO) 9 % (22-44); MEAN CORPUSCULAR HEMOGLOBIN 28.4 pg (27.5-34.5); MEAN CORPUSCULAR HGB CONC 33.3 g/dL (33.2-36.2); MEAN PLATELET VOLUME 8.6 fL (7.4-10.4); MONOCYTES % (AUTO) 8 % (2-9); NEUTROPHILS % (AUTO) 80 % (42-75); PLATELET COUNT 339 x10^3/uL (130-400); RED BLOOD COUNT 3.67 x10^6/uL (4.38-5.82); RED CELL DISTRIBUTION WIDTH 15.9 % (9.4-14.8)
[2020-11-17] MEDS: DIPHENOXYLATE/ATROPINE ORAL SOL PO SCH ×4 (06:32→20:05)
[2020-11-17] MEDS: GABAPENTIN 300 MG CAPSULE PO SCH ×3 (07:18→20:05)
[2020-11-17 08:20] VITALS: BP 122/80
[2020-11-17] MEDS: PSYLLIUM PACKET PO SCH (09:00)
[2020-11-17] MEDS: PANTOPRAZOLE 20MG TABLET PO SCH ×2 (11:03→20:05)
[2020-11-17 14:19] VITALS: BP 119/74
[2020-11-17] MEDS: CEFTRIAXONE 2,000 MG in DEXTROSE 5% 50 ML IVPB SCH (16:01)
[2020-11-17 20:20] VITALS: BP 128/81
[2020-11-18] MEDS: METRONIDAZOLE PMX 500MG/100ML 100 ML IV SCH ×4 (00:13→18:30)
[2020-11-18] MEDS: HYDROcodone/APAP 5/325 TABLET PO PRN ×5 (00:13→18:29)
[2020-11-18 01:42] VITALS: BP 124/80
[2020-11-18 01:45] LABS: BASOPHILS % (AUTO) 1 % (0-1); EOSINOPHILS % (AUTO) 3 % (1-7); LYMPHOCYTES % (AUTO) 12 % (22-44); MEAN CORPUSCULAR HEMOGLOBIN 28.9 pg (27.5-34.5); MEAN CORPUSCULAR HGB CONC 33.9 g/dL (33.2-36.2); MEAN PLATELET VOLUME 8.6 fL (7.4-10.4); MONOCYTES % (AUTO) 9 % (2-9); NEUTROPHILS % (AUTO) 76 % (42-75); PLATELET COUNT 299 x10^3/uL (130-400); RED BLOOD COUNT 3.48 x10^6/uL (4.38-5.82); RED CELL DISTRIBUTION WIDTH 16.3 % (9.4-14.8)
[2020-11-18] MEDS: VANCOMYCIN 1,800 MG in SODIUM CHLORIDE 0.9% 250 ML IV SCH ×2 (02:13→14:31)
[2020-11-18] MEDS: ACETAMINOPHEN 500 MG TABLET PO SCH ×3 (06:00→20:35)
[2020-11-18] MEDS: DIPHENOXYLATE/ATROPINE ORAL SOL PO SCH ×4 (06:00→20:44)
[2020-11-18 07:05] VITALS: BP 117/89
[2020-11-18] MEDS: PSYLLIUM PACKET PO SCH (09:29)
[2020-11-18] MEDS: PANTOPRAZOLE 20MG TABLET PO SCH ×2 (09:30→20:44)
[2020-11-18] MEDS: GABAPENTIN 300 MG CAPSULE PO SCH ×3 (09:30→20:44)
[2020-11-18 13:20] VITALS: BP 119/70
[2020-11-18] MEDS: CEFTRIAXONE 2,000 MG in DEXTROSE 5% 50 ML IVPB SCH ×2 (16:15→17:39)
[2020-11-18 19:49] VITALS: BP 114/74
[2020-11-19] MEDS: METRONIDAZOLE PMX 500MG/100ML 100 ML IV SCH ×4 (00:18→18:00)
[2020-11-19] MEDS: HYDROcodone/APAP 5/325 TABLET PO PRN ×5 (00:23→19:39)
[2020-11-19] MEDS: VANCOMYCIN 1,800 MG in SODIUM CHLORIDE 0.9% 250 ML IV SCH ×2 (02:12→14:06)
[2020-11-19 02:32] VITALS: BP 123/78
[2020-11-19] MEDS: ACETAMINOPHEN 500 MG TABLET PO SCH ×2 (06:00→14:32)
[2020-11-19] MEDS: DIPHENOXYLATE/ATROPINE ORAL SOL PO SCH ×3 (06:14→16:06)
[2020-11-19 06:55] VITALS: BP 113/70
[2020-11-19] MEDS: GABAPENTIN 300 MG CAPSULE PO SCH ×2 (08:13→15:48)
[2020-11-19] MEDS: PANTOPRAZOLE 20MG TABLET PO SCH (08:13)
[2020-11-19] MEDS: PSYLLIUM PACKET PO SCH (08:13)
[2020-11-19 12:09] VITALS: BP 127/76
[2020-11-19] MEDS ORDERED: HYDR-2214 PO (12:19)
[2020-11-19] MEDS ORDERED: PSYL3.4P8 PO (12:19)
[2020-11-19] MEDS ORDERED: PANT20TA4 PO (12:19)
[2020-11-19] MEDS ORDERED: DIPH60LI PO (12:19)
[2020-11-19] MEDS ORDERED: OMEP20TA62 PO (16:05)
[2020-11-19] MEDS ORDERED: DIPH1TAB PO ×2 (16:05)
[2020-11-19] MEDS: CEFTRIAXONE 2,000 MG in DEXTROSE 5% 50 ML IVPB SCH (16:06)
[2020-11-19 19:30] VITALS: BP 122/77
[2020-12-01] MEDS ORDERED: DIPH1TAB PO ×2 (11:14→11:15)
== END 2020-11-19 19:45 | disposition home or self-care (01) | DRG 853 ==
LOC: ED 17:18 → EDIP 17:40 → 5SO 11-08 11:26 → 4NE 11-14 18:25
PROVIDERS: ADMIT Hospitalist; ATTEND Internal Medicine
PROC: 0D1B0Z4 Bypass Ileum to Cutaneous, Open Approach (ICD-10-PCS; 2020-11-08)
PROC: 0DT80ZZ Resection of Small Intestine, Open Approach (ICD-10-PCS; principal; 2020-11-08 12:30)
PROC: 0D9670Z Drainage of Stomach with Drainage Device, Via Natural or Artificial Opening (ICD-10-PCS; 2020-11-09)
PROC: 02HV33Z Insertion of Infusion Device into Superior Vena Cava, Percutaneous Approach (ICD-10-PCS; 2020-11-13)
PROC: B5181ZA Fluoroscopy of Superior Vena Cava using Low Osmolar Contrast, Guidance (ICD-10-PCS; 2020-11-13)
PROC: B548ZZA Ultrasonography of Superior Vena Cava, Guidance (ICD-10-PCS; 2020-11-13)
PROC: 3E0336Z Introduction of Nutritional Substance into Peripheral Vein, Percutaneous Approach (ICD-10-PCS; 2020-11-13)
PROC: 0DB68ZX Excision of Stomach, Via Natural or Artificial Opening Endoscopic, Diagnostic (ICD-10-PCS; 2020-11-13)
DX: A41.9 Sepsis, unspecified organism (principal); K55.019 Acute (reversible) ischemia of small intestine, extent unspecified; I81 Portal vein thrombosis; D62 Acute posthemorrhagic anemia; K76.6 Portal hypertension; K22.10 Ulcer of esophagus without bleeding; I85.00 Esophageal varices without bleeding; K92.2 Gastrointestinal hemorrhage, unspecified; F12.10 Cannabis abuse, uncomplicated; R65.20 Severe sepsis without septic shock; Z20.822 Contact with and (suspected) exposure to COVID-19; D47.3 Essential (hemorrhagic) thrombocythemia; K29.70 Gastritis, unspecified, without bleeding; K31.89 Other diseases of stomach and duodenum; K26.9 Duodenal ulcer, unspecified as acute or chronic, without hemorrhage or perforation; K25.9 Gastric ulcer, unspecified as acute or chronic, without hemorrhage or perforation; I86.4 Gastric varices; Z86.718 Personal history of other venous thrombosis and embolism; Z79.01 Long term (current) use of anticoagulants; Z83.3 Family history of diabetes mellitus
CPT/HCPCS: 36415; 74018; 81270; 84145; 96374; 96375; 99285; J1955; J3475; 36573; 71045; 74177; 80048; 80053; 80202; 81001; 82010; 82330; 82803; 82947; 83605; 83690; 83735; 84100; 84132; 84134; 84295; 84478; 85014; 85018; 85025; 85045; 85520; 85610; 85730; 86850; 86900; 87040; 87086; 87324; 87635; 88305; 88307; 93005; C1729; G0378; J0610; J0690; J0696; J1100; J1170; J1644; J2405; J2704; J2710; J3010; J3370; J3480; C1751; C1765; C9113; J0330; J2270; J2800; J3420; J7030; J7040; J7050

== ENCOUNTER 2020-11-25 12:59 | Outpatient (CLI) | payer BC ==
[~2020-11-25 12:59] MED LIST changes: +DIPH1TAB PO; +DIPH60LI PO; +HYDR-2214 PO; +OMEP20TA62 PO; +PANT20TA4 PO; +PSYL3.4P8 PO
[2020-12-01] MEDS ORDERED: DIPH1TAB PO ×2 (11:14→11:15)
== END 2020-11-25 23:59 | disposition home or self-care (01) ==
LOC: WOUND 12:59
PROVIDERS: ATTEND Internal Medicine
DX: Z43.2 Encounter for attention to ileostomy (principal); L25.9 Unspecified contact dermatitis, unspecified cause; F12.10 Cannabis abuse, uncomplicated; K76.6 Portal hypertension; Z79.01 Long term (current) use of anticoagulants; Z86.718 Personal history of other venous thrombosis and embolism; Z20.822 Contact with and (suspected) exposure to COVID-19
CPT/HCPCS: 99214

== ENCOUNTER 2020-11-29 10:48 | Inpatient (IN) | payer BC ==
[~2020-11-29] VITALS: Ht 180.3 cm; Wt 81.5 kg
[2020-11-29 11:30] LABS: BASOPHILS % (AUTO) 0 % (0-1); EOSINOPHILS % (AUTO) 1 % (1-7); LYMPHOCYTES % (AUTO) 5 % (22-44); MEAN CORPUSCULAR HEMOGLOBIN 28.3 pg (27.5-34.5); MONOCYTES % (AUTO) 4 % (2-9); NEUTROPHILS % (AUTO) 90 % (42-75); PLATELET COUNT 485 x10^3/uL (130-400); RED BLOOD COUNT 4.83 x10^6/uL (4.38-5.82); RED CELL DISTRIBUTION WIDTH 18.4 % (9.4-14.8)
[2020-11-29] MEDS ORDERED: SODIUM CHLORIDE 0.9% 1,000ML IVBOLUS ONE (11:30)
[2020-11-29] MEDS ORDERED: MORPHINE SULFATE 4 MG/ML, 1ML IVPush PRN (11:30)
[2020-11-29] MEDS ORDERED: SODIUM CHLORIDE FLUSH 10ML SYR IVF ONE (11:30)
[2020-11-29 11:43] LABS: ALANINE AMINOTRANSFERASE 647 U/L (12-78); ANION GAP 10 mmol/L (5-15); CALCIUM 9.6 mg/dL (8.5-10.1); CHLORIDE 103 mmol/L (98-107); CREATININE 0.87 mg/dL (0.7-1.3)
[2020-11-29 11:45] LABS: ALKALINE PHOSPHATASE 358 U/L (45-117); BILIRUBIN,TOTAL 0.8 mg/dL (0.2-1.0); TOTAL PROTEIN 8.7 g/dL (6.4-8.2)
[2020-11-29] MEDS ORDERED: MORPHINE SULFATE 4 MG/ML, 1ML ONE ×2 (11:54→19:34)
--- NOTE | 2020-11-29 12:24 | NUR ---
cc ua collected 400ml of appriate color/consistency ileostomy fluid drained from collection bag piv placed-medicated per emar for mid back pain at 8/[address] scan at 12:23
[2020-11-29 12:28] LABS: MICROSCOPIC INDICATED
[2020-11-29] MEDS ORDERED: OMNIPAQUE 350 MG/ML, 100ML BOTTLE ONE (12:39)
[2020-11-29] MEDS ORDERED: LACTATED RINGERS 1,000 ML IVBOLUS ONE (13:30)
--- NOTE | 2020-11-29 13:46 | NUR ---
ostomy bag leaking, new bag placed patient states his stoma looks red and requested a wound nurse to come take a look for teaching. supplies ordered
--- NOTE | 2020-11-29 14:04 | NUR ---
PATIENT PROVIDED CLEAR LIQUID OK PER DR LAW. PATIENT TO BE ADMITTED.
[2020-11-29 14:35] LABS: INTERNATIONAL NORMALIZED RATIO 1.14 (0.93-1.1); PROTHROMBIN TIME 12.1 Seconds (9.6-11.5)
[2020-11-29] MEDS ORDERED: morphine SULFATE 10 MG/ML, 1ML IVPush PRN (15:00)
[2020-11-29] MEDS ORDERED: ONDANSETRON 2MG/ML, 2ML IVPush PRN (15:00)
[2020-11-29] MEDS ORDERED: ACETAMINOPHEN 325 MG TABLET PO PRN (15:00)
[2020-11-29] MEDS ORDERED: MELATONIN 5 MG TABLET PO PRN (15:00)
[2020-11-29] MEDS ORDERED: hydrALAzine 20 MG/ML, 1ML IVPush PRN (15:00)
[2020-11-29] MEDS ORDERED: METOCLOPRAMIDE 5 MG/ML, 2ML IVPush PRN (15:30)
[2020-11-29 15:39] LABS: CHOL/HDL RATIO 2.7
--- NOTE | 2020-11-29 15:47 | NUR ---
report given to floor patient ready to go
[2020-11-29 16:00] VITALS: BP 126/86
[2020-11-29] MEDS: OXYcodone IR 5MG TABLET PO PRN ×2 (17:12→21:25)
[2020-11-29] MEDS: SUCRALFATE 1 GM/10 ML UDC PO SCH ×2 (17:12→21:25)
[2020-11-29] MEDS: ENOXAPARIN 40 MG/0.4 ML SQ SCH (17:13)
[2020-11-29] MEDS: LACTATED RINGERS 1,000 ML IV SCH (17:14)
[2020-11-29 17:31] VITALS: BP 126/86
[2020-11-29 19:24] VITALS: BP 127/78
[2020-11-29] MEDS: PANTOPRAZOLE 40 MG IV IVPush SCH (21:25)
[2020-11-30 02:32] VITALS: BP 112/76
[2020-11-30] MEDS: OXYcodone IR 5MG TABLET PO PRN ×4 (02:33→19:37)
[2020-11-30 05:57] LABS: BASOPHILS % (AUTO) 1 % (0-1); EOSINOPHILS % (AUTO) 4 % (1-7); LYMPHOCYTES % (AUTO) 20 % (22-44); MEAN CORPUSCULAR HEMOGLOBIN 28.9 pg (27.5-34.5); MEAN CORPUSCULAR HGB CONC 33.5 g/dL (33.2-36.2); MEAN PLATELET VOLUME 8.3 fL (7.4-10.4); MONOCYTES % (AUTO) 7 % (2-9); NEUTROPHILS % (AUTO) 68 % (42-75); PLATELET COUNT 320 x10^3/uL (130-400); RED BLOOD COUNT 3.93 x10^6/uL (4.38-5.82); RED CELL DISTRIBUTION WIDTH 18.2 % (9.4-14.8)
[2020-11-30] MEDS: LACTATED RINGERS 1,000 ML IV SCH (06:07)
[2020-11-30 06:09] LABS: ALBUMIN 3.2 g/dL (3.4-5.0); ANION GAP 7 mmol/L (5-15); CALCIUM 8.9 mg/dL (8.5-10.1); CHLORIDE 104 mmol/L (98-107)
[2020-11-30 06:12] LABS: ALANINE AMINOTRANSFERASE 523 U/L (12-78); ALKALINE PHOSPHATASE 262 U/L (45-117); BILIRUBIN,TOTAL 0.9 mg/dL (0.2-1.0); CREATININE 0.71 mg/dL (0.7-1.3); TOTAL PROTEIN 6.7 g/dL (6.4-8.2)
[2020-11-30] MEDS: SUCRALFATE 1 GM/10 ML UDC PO SCH ×3 (06:35→16:52)
[2020-11-30 07:22] VITALS: BP 115/75
[2020-11-30] MEDS: PANTOPRAZOLE 40 MG IV IVPush SCH (09:16)
[2020-11-30 13:17] VITALS: BP 101/67
[2020-11-30] MEDS: ENOXAPARIN 40 MG/0.4 ML SQ SCH (16:53)
[2020-11-30] MEDS ORDERED: DIPH1TAB PO ×2 (17:13)
[2020-11-30 19:22] VITALS: BP 120/79
[2020-12-01] MEDS ORDERED: DIPH1TAB PO ×2 (11:14→11:15)
== END 2020-11-30 20:00 | disposition home or self-care (01) | DRG 441 ==
LOC: ED 10:53 → 4NE 14:31 → ED 17:10
PROVIDERS: ADMIT Hospitalist; ATTEND Family Medicine
DX: B17.9 Acute viral hepatitis, unspecified (principal); K85.90 Acute pancreatitis without necrosis or infection, unspecified; I81 Portal vein thrombosis; I82.91 Chronic embolism and thrombosis of unspecified vein; K76.6 Portal hypertension; F12.90 Cannabis use, unspecified, uncomplicated; K25.9 Gastric ulcer, unspecified as acute or chronic, without hemorrhage or perforation; R74.01 Elevation of levels of liver transaminase levels; D72.829 Elevated white blood cell count, unspecified; R16.1 Splenomegaly, not elsewhere classified; K76.0 Fatty (change of) liver, not elsewhere classified; Z83.3 Family history of diabetes mellitus
CPT/HCPCS: 36415; 74177; 74250; 76700; 80053; 80061; 80074; 81001; 83605; 83690; 83735; 84100; 84145; 85025; 85610; 87086; 93005; 96361; 96374; 96376; G0378; J1650; Q9967; C9113; J2270; J7030; J7120

== ENCOUNTER 2020-12-03 13:15 | Outpatient (CLI) | payer BC | END 2020-12-03 23:59 | disposition home or self-care (01) | LOC: WOUND 13:15 | PROVIDERS: ATTEND Internal Medicine | DX: Z43.2 Encounter for attention to ileostomy (principal); I82.891 Chronic embolism and thrombosis of other specified veins; K76.6 Portal hypertension; Z86.718 Personal history of other venous thrombosis and embolism | CPT/HCPCS: 99212 ==

== ENCOUNTER 2020-12-08 07:47 | Outpatient (CLI) | payer BC | END 2020-12-08 23:59 | disposition home or self-care (01) | LOC: RAD 07:47 | PROVIDERS: ATTEND Surgery | DX: Z09 Encounter for follow-up examination after completed treatment for conditions other than malignant neoplasm (principal); R16.1 Splenomegaly, not elsewhere classified | CPT/HCPCS: 74270 ==

== ENCOUNTER 2020-12-10 13:23 | Outpatient (CLI) | payer BC | END 2020-12-10 23:59 | disposition home or self-care (01) | LOC: WOUND 13:23 | PROVIDERS: ATTEND Internal Medicine | DX: Z43.2 Encounter for attention to ileostomy (principal); K76.6 Portal hypertension; Z86.718 Personal history of other venous thrombosis and embolism; F12.90 Cannabis use, unspecified, uncomplicated; Z20.822 Contact with and (suspected) exposure to COVID-19; Z79.01 Long term (current) use of anticoagulants | CPT/HCPCS: 99213 ==

== ENCOUNTER 2020-12-20 10:58 | Outpatient (CLI) | payer BC | END 2020-12-20 23:59 | disposition home or self-care (01) | LOC: WOUND 10:58 | PROVIDERS: ATTEND Internal Medicine | DX: Z43.2 Encounter for attention to ileostomy (principal); K76.6 Portal hypertension; F12.90 Cannabis use, unspecified, uncomplicated; Z86.718 Personal history of other venous thrombosis and embolism; Z20.822 Contact with and (suspected) exposure to COVID-19; Z79.01 Long term (current) use of anticoagulants | CPT/HCPCS: 99213 ==

== ENCOUNTER → 2020-12-27 | Outpatient (CLI) | payer BC | END | disposition home or self-care (01) | LOC: WOUND 13:09 | PROVIDERS: ATTEND Internal Medicine | DX: Z43.2 Encounter for attention to ileostomy (principal); K76.6 Portal hypertension; F12.10 Cannabis abuse, uncomplicated; Z86.718 Personal history of other venous thrombosis and embolism; Z20.822 Contact with and (suspected) exposure to COVID-19; Z79.01 Long term (current) use of anticoagulants | CPT/HCPCS: 99212 ==